=== PATIENT | female | born 1985 | race Two or more races ===

== ENCOUNTER 2016-05-20 04:33 | Emergency (ER) | payer OTHER, MEDICAID ==
[~2016-05-20] VITALS: Ht 167.6 cm; Wt 150.0 kg
[~2016-05-20 04:33] MED LIST: ALBU8.5H3; CYCL-319; DULO60CA6; FLUT16SP24; HYD25; NORE0.356; PANT40TA4; SUMA100T9; TOPI100T42; [UNRECOGNIZED DRUG - CODE]; [UNRECOGNIZED DRUG - CODE]
[2016-05-20 04:36] VITALS: Ht 167.6 cm; Wt 150.0 kg
[2016-05-20] MEDS ORDERED: KETOROLAC 30 MG INJ IM STA (05:05)
--- NOTE | 2016-05-20 05:14 | ERD ---
ER Documentation Chief Complaint Date/Time DATE: 05/20/16 TIME: 05:13 Chief Complaint back pain x 2 days HPI 30-year-old female morbidly obese with a history of hypertension, hyperlipidemia , asthma comes to the emergency room with diffuse back pain, and body pains as well as sore throat, over the last 3 days. She denies fever, chills, nausea, vomiting or hematuria. She denies chest pain, shortness of breath. ROS All systems reviewed and are negative except as per history of present illness. Medications Home Meds Active Scripts Hydrocodone/Acetaminophen ([place] 5-325 Tablet) 1 Each Tablet, 1 TAB PO Q6H Y for PAIN, #7 TAB Prov:MARIANNE RUSH PA-C 05/20/16 Naproxen* (Naprosyn*) 500 Mg Tablet, 500 MG PO BID Y for PAIN AND/OR INFLAMMATION, #30 TAB Prov:MARIANNE RUSH PA-C 05/20/16 Reported Medications Topiramate* (Topamax*) 100 Mg Tablet, 50 10/03/13 Pantoprazole (Protonix) 40 Mg Tabec, DAILY 10/03/13 Norethindrone (Yamileth-Be) 0.35 Mg Tablet, DAILY 10/03/13 Sumatriptan Succinate* (Imitrex*) 100 Mg Tablet, PRN 10/03/13 Hydrochlorothiazide* (Hydrochlorothiazide*) 25 Mg Tab, DAILY 10/03/13 Fluticasone Propionate (Flonase (16 gm)) 1 [place], DAILY 10/03/13 Duloxetine Hcl* (Cymbalta*) 60 Mg Capsule.dr, DAIlY 10/03/13 Cyclobenzaprine Hcl* (Cyclobenzaprine Hcl*) 10 Mg Tablet, Q6 10/03/13 Uucdkxgo-Kkwpevmsv-Ebbojlnbfl* (Cortisporin* Ophth) 3.5 Gm Oint 10/03/13 Atenolol* (Tenormin*) 100 Mg Tablet, DAILY 10/03/13 Albuterol Sulfate* (Proair HFA*) 8.5 Gm Hfa.aer.ad 11/16/12 Allergies Allergies: Coded Allergies: No Known Allergy (Unverified , 10/03/13) PMhx/Soc History of Surgery: No Anesthesia Reaction: No Hx Neurological Disorder: No Hx Respiratory Disorders: Yes (ASTHMA) Hx Cardiac Disorders: Yes (HTN) Hx Psychiatric Problems: Yes (DEPRESSION(?)) Hx Miscellaneous Medical Probl: Yes (DEVELOPMENTAL DELAYS) Hx Alcohol Use: Yes (OCCASIONALLY) Hx Substance Use: Yes (MARIJUANNA EDIBLE "CANDIES".) Hx Tobacco Use: Yes Smoking Status: Current every day smoker Physical Exam Vitals Vital Signs Date Time Temp Pulse Resp B/P Pulse Ox O2 Delivery O2 Flow Rate FiO2 05/20/16 04:36 97.6 101 20 164/80 100 Physical Exam General: Well-developed, well-nourished. The patient appears in no acute distress. HEENT: Head is normocephalic, atraumatic. No scleral icterus. Neck: Supple. Nontender. Lungs: Clear to auscultation. Normal air movement. Heart: Regular rate and rhythm. S1 and S2 are normal. No murmurs, gallops, or rubs. Abdomen: Soft, nontender, nondistended. Bowel sounds are normoactive. Extremities: No clubbing or cyanosis. Normal pulses. Moving extremities x 4. No weakness. Neurologic: Alert and oriented 3. No focal deficits. Skin: Normal turgor. No rash or lesions. Results 24 hrs Laboratory Tests Test 05/20/16 05:27 Bedside Urine Blood 2+ Bedside Urine Glucose (UA) Negative Bedside Urine Ketones (LAB) Negative Bedside Urine Leukocyte Esterase (L Negative Bedside Urine Nitrite (LAB) Negative Bedside Urine Protein (LAB) Negative Bedside Urine pH (LAB) 5.5 Current Medications Medications (Trade) Dose Ordered Sig/Amaya Route PRN Reason Start Time Stop Time Status Last Admin Dose Admin Ketorolac Tromethamine (Toradol) 30 mg ONCE STAT IM 05/20/16 05:05 05/20/16 05:06 DC 05/20/16 05:31 Procedures/MDM ED course: Patient was given Toradol 30 mg IM. She is also given a GI cocktail which she subsequently complained of epigastric abdominal pain. MDM: 31-year-old female comes in with painful urination, and body pain for the past 3 days, headache. This patient's symptoms appear to be possibly from a viral syndrome versus my migraine headache. She presents with a frontal headache, that is throbbing, she was given Toradol in the emergency department, and will be observed. She does not show signs of an acute or surgical process, I doubt obstructive kidney stone, septic kidney stone, pyelonephritis, pneumonia , meningitis. Patient's blood pressure was elevated (>120/80) but appears stable without evidence of hypertension emergency or urgency. The patient was counseled about the risks of hypertension and urged to pursue outpatient monitoring and therapy within a week with their primary care physician. Departure Diagnosis: Primary Impression: Myalgia Condition: Good MARIANNE RUSH PA-C May 20, 2016 05:14
[2016-05-20 05:26] LABS: URINE BLOOD (Dip) POC 2+ (NEGATIVE)
[2016-05-20] MEDS ORDERED: NAPR-260 PO (05:41)
[2016-05-20] MEDS ORDERED: HYDR-906 PO (05:41)
[2016-05-20] MEDS ORDERED: LIDOCAINE/MYLANTA 40 ML BTL PO ONE (06:00)
[2016-05-20 06:07] VITALS: BP 159/77; PULSE 89; RESP 22; TEMP 98.9
== END 2016-05-20 06:08 | disposition home or self-care (01) ==
LOC: FTE 04:33
DX: M79.1 Myalgia (principal); I10 Essential (primary) hypertension; J45.909 Unspecified asthma, uncomplicated; F17.210 Nicotine dependence, cigarettes, uncomplicated; E66.01 Morbid (severe) obesity due to excess calories; Z68.43 Body mass index [BMI] 50.0-59.9, adult
CPT/HCPCS: 81003; J1885; 96372

== ENCOUNTER 2016-09-09 20:22 | Emergency (ER) | payer OTHER, MEDICAID ==
[~2016-09-09] VITALS: Ht 167.6 cm; Wt 181.8 kg
[~2016-09-09 20:22] MED LIST changes: +HYDR-906 PO; +NAPR-260 PO
[2016-09-09 20:25] VITALS: Ht 167.6 cm; Wt 181.8 kg
[2016-09-09] MEDS ORDERED: ONDANSETRON (ODT) 4 MG TAB ODT STA (21:31)
[2016-09-09] MEDS ORDERED: ONDA4TAB14 PO (21:35)
[2016-09-09] MEDS ORDERED: HYDR-902 PO (21:35)
--- NOTE | 2016-09-09 21:40 | ERD ---
ER Documentation Chief Complaint Date/Time DATE: 09/09/16 TIME: 21:38 Chief Complaint states glf yesterday, c/o generalize body pain HPI 31-year-old female who presents with generalized body pain and hyperesthesia after a ground-level fall yesterday. The patient states that she tripped and fell to the ground she did not hit her head or lose consciousness. Since then she has had total body pain. She states pain everywhere in her body. She denies any focal trauma or injury. She denies any neck pain. Pain is not improved with Motrin and is moderate to severe. ROS All systems reviewed and are negative except as per history of present illness. Medications Home Meds Active Scripts Ondansetron (Ondansetron Odt) 4 Mg Tab.rapdis, 4 MG PO Q6H Y for NAUSEA AND/OR VOMITING, #10 TAB Prov:JUANA BROWN MD 09/09/16 Hydrocodone/Acetaminophen ([place] 10-325 Tablet) 1 Each Tablet, 1 TAB PO Q6H Y for PAIN, #7 TAB Prov:JUANA BROWN MD 09/09/16 Hydrocodone/Acetaminophen ([place] 5-325 Tablet) 1 Each Tablet, 1 TAB PO Q6H Y for PAIN, #7 TAB Prov:MARIANNE RUSH PA-C 05/20/16 Naproxen* (Naprosyn*) 500 Mg Tablet, 500 MG PO BID Y for PAIN AND/OR INFLAMMATION, #30 TAB Prov:MARIANNE RUSH PA-C 05/20/16 Reported Medications Topiramate* (Topamax*) 100 Mg Tablet, 50 10/03/13 Pantoprazole (Protonix) 40 Mg Tabec, DAILY 10/03/13 Norethindrone (Yamileth-Be) 0.35 Mg Tablet, DAILY 10/03/13 Sumatriptan Succinate* (Imitrex*) 100 Mg Tablet, PRN 10/03/13 Hydrochlorothiazide* (Hydrochlorothiazide*) 25 Mg Tab, DAILY 10/03/13 Fluticasone Propionate (Flonase (16 gm)) 1 Selt[place] Seltzer, DAILY 10/03/13 Duloxetine Hcl* (Cymbalta*) 60 Mg Capsule.dr, DAIlY 10/03/13 Cyclobenzaprine Hcl* (Cyclobenzaprine Hcl*) 10 Mg Tablet, Q6 10/03/13 Dpckzkhx-Owtqnxile-Nyrgxjlppf* (Cortisporin* Ophth) 3.5 Gm Oint 10/03/13 Atenolol* (Tenormin*) 100 Mg Tablet, DAILY 10/03/13 Albuterol Sulfate* (Proair HFA*) 8.5 Gm Hfa.aer.ad 11/16/12 Allergies Allergies: Coded Allergies: No Known Allergy (Unverified , 09/09/16) PMhx/Soc History of Surgery: No Anesthesia Reaction: No Hx Neurological Disorder: No Hx Respiratory Disorders: Yes (ASTHMA) Hx Cardiac Disorders: Yes (HTN) Hx Psychiatric Problems: Yes (DEPRESSION) Hx Miscellaneous Medical Probl: Yes (DEVELOPMENTAL DELAY, arthritis) Hx Alcohol Use: Yes (OCCASIONALLY) Hx Substance Use: Yes (MARIJUANNA EDIBLE "CANDIES".) Hx Tobacco Use: No Smoking Status: Never smoker FmHx Family History: No diabetes Physical Exam Vitals Vital Signs Date Time Temp Pulse Resp B/P Pulse Ox O2 Delivery O2 Flow Rate FiO2 09/09/16 20:25 98.9 85 20 136/79 97 Physical Exam Airway is intact Bilateral breath sounds Strong distal pulses No obvious deficits General: Morbidly obese female who is tearful to the slightest of touch the skin Head: Normocephalic, atraumatic Eyes: Pupils equally reactive, EOM intact ENT: Moist mucous membranes Neck: Supple, no lymphadenopathy, No midline tenderness, deformities, step-offs to the cervical spine, full active and passive range of motion without midline pain. Respiratory: Lungs clear bilaterally, no distress, no chest wall tenderness, no crepitus Cardiovascular: RRR, no murmurs, rubs, or gallops Abdominal: Soft, non-tender, non-distended, no peritoneal signs, pelvis is stable : Deferred MSK: No edema, no unilateral swelling, 5/5 strength, no midline tenderness deformities or step-offs to the thoracolumbar spine Neurologic: Alert and oriented, moving all extremities, normal speech, no focal weakness, no cerebellar signs Skin: No ecchymoses or bruising to the chest or abdomen, hyperesthesia Psych: Normal mood Results 24 hrs Current Medications Medications (Trade) Dose Ordered Sig/Amaya Route PRN Reason Start Time Stop Time Status Last Admin Dose Admin Acetaminophen/ Hydrocodone Bitart ([place] (10/325)) 1 tab ONCE ONCE PO 09/09/16 22:00 09/09/16 22:01 Ondansetron HCl (Zofran Odt) 4 mg ONCE STAT ODT 09/09/16 21:31 09/09/16 21:33 DC Procedures/MDM The patient presents with mechanical trip and fall. No evidence of syncope. The patient has significant hyperesthesia to her skin. She has no focal evidence of trauma to the head, neck, chest abdomen or pelvis or extremities. This is possibly related to chronic pain syndrome versus anxiety. The patient does not require laboratory testing or diagnostic imaging. The patient does not meet high-risk criteria and based on NEXUS cervical spine criteria there is no indication for cervical spine imaging at this time. The patient was offered Toradol but did not want an injection. She was given [place] will be given 7 tablets of [place] for discharge home. I discussed range of motion exercises and return precautions. We discussed follow up with the patient's primary care doctor within 24 to 48 hours as needed. We also discussed return to the emergency room for worsening symptoms or worsening condition. Outpatient referral: [None required] Discharge Medications: [place], Zofran We discussed the use of narcotics including avoidance of operating heavy machinery and driving as well as its addictive properties. Departure Diagnosis: Primary Impression: Myalgia Condition: Stable Patient Instructions: Myalgias Additional Instructions: Call your primary care doctor TOMORROW for an appointment during the next 1 WEEK.Tell the pocket secretary assembler that you were referred from this facility.See the doctor sooner or return here if your condition worsens before your appointment time. JUANA BROWN MD September 09, 2016 21:40
[2016-09-09] MEDS ORDERED: HYDROCODONE/APAP (10/325) TAB PO ONE (22:00)
[2016-09-09 22:16] VITALS: BP 129/78; PULSE 74; RESP 20; TEMP 98.9
== END 2016-09-09 22:18 | disposition home or self-care (01) ==
LOC: E/R 20:22
DX: M79.1 Myalgia (principal); I10 Essential (primary) hypertension; J45.909 Unspecified asthma, uncomplicated; R40.2142 Coma scale, eyes open, spontaneous, at arrival to emergency department; R40.2252 Coma scale, best verbal response, oriented, at arrival to emergency department; R40.2362 Coma scale, best motor response, obeys commands, at arrival to emergency department
CPT/HCPCS: 99284

== ENCOUNTER 2016-11-03 15:47 | Emergency (ER) | payer OTHER, MEDICAID ==
[~2016-11-03] VITALS: Ht 165.1 cm; Wt 205.0 kg
[~2016-11-03 15:47] MED LIST changes: +HYDR-902 PO; +ONDA4TAB14 PO
[2016-11-03 16:04] VITALS: Ht 165.1 cm; Wt 205.0 kg
[2016-11-03] MEDS ORDERED: SOD CHLORIDE 0.9% 1,000 ML IV STA (16:44)
[2016-11-03] MEDS ORDERED: ONDANSETRON 4 MG INJ IV STA (16:44)
[2016-11-03] MEDS ORDERED: HYDROmorphONE 1 MG/ML SYG IV STA ×2 (16:44→17:40)
--- NOTE | 2016-11-03 17:07 | ERD ---
ER Documentation Chief Complaint Date/Time DATE: 11/03/16 TIME: 17:02 Chief Complaint Complains of back and abdominal pain x 2 days HPI This is a 31-year-old female that presents to the ER with sharp upper abdominal pain that started 2 days ago. Patient is also complaining of fever and watery diarrhea. She denies any nausea or vomiting. Patient is also complaining of mid back pain that radiates to her thigh. Patient denies any trauma. She does have a past medical history of back pain secondary to an injury. Patient states that pain is worse whenever she breathes in her whenever she moves. She has not taken anything for the pain. Patient does admit to having marijuana for migraine headaches. ROS 12 point review of systems was done, all negative except per HPI. Medications Home Meds Active Scripts Ciprofloxacin Hcl* (Ciprofloxacin Hcl*) 500 Mg Tablet, 500 MG PO BID for 10 Days , TAB Prov:LORRAINE CHARLES 11/03/16 Famotidine* (Pepcid*) 20 Mg Tablet, 20 MG PO BID for 14 Days, TAB Prov:LORRAINE CHARLES 11/03/16 Ondansetron (Ondansetron Odt) 4 Mg Tab.rapdis, 4 MG PO Q6H Y for NAUSEA AND/OR VOMITING, #10 TAB Prov:JUANA BROWN MD 09/09/16 Hydrocodone/Acetaminophen ([place] 10-325 Tablet) 1 Each Tablet, 1 TAB PO Q6H Y for PAIN, #7 TAB Prov:JUANA BROWN MD 09/09/16 Hydrocodone/Acetaminophen ([place] 5-325 Tablet) 1 Each Tablet, 1 TAB PO Q6H Y for PAIN, #7 TAB Prov:MARIANNE RUSH PA-C 05/20/16 Naproxen* (Naprosyn*) 500 Mg Tablet, 500 MG PO BID Y for PAIN AND/OR INFLAMMATION, #30 TAB Prov:MARIANNE RUSH PA-C 05/20/16 Reported Medications Topiramate* (Topamax*) 100 Mg Tablet, 50 10/03/13 Pantoprazole (Protonix) 40 Mg Tabec, DAILY 10/03/13 Norethindrone (Yamileth-Be) 0.35 Mg Tablet, DAILY 10/03/13 Sumatriptan Succinate* (Imitrex*) 100 Mg Tablet, PRN 10/03/13 Hydrochlorothiazide* (Hydrochlorothiazide*) 25 Mg Tab, DAILY 10/03/13 Fluticasone Propionate (Flonase (16 gm)) 1 [place], DAILY 10/03/13 Duloxetine Hcl* (Cymbalta*) 60 Mg Capsule.dr, DAIlY 10/03/13 Cyclobenzaprine Hcl* (Cyclobenzaprine Hcl*) 10 Mg Tablet, Q6 10/03/13 Srwbcnhs-Mevzaoixt-Urwwednjuq* (Cortisporin* Ophth) 3.5 Gm Oint 10/03/13 Atenolol* (Tenormin*) 100 Mg Tablet, DAILY 10/03/13 Albuterol Sulfate* (Proair HFA*) 8.5 Gm Hfa.aer.ad 11/16/12 Allergies Allergies: Coded Allergies: No Known Allergy (Unverified , 11/03/16) PMhx/Soc History of Surgery: No Anesthesia Reaction: No Hx Neurological Disorder: No Hx Respiratory Disorders: Yes (ASTHMA) Hx Cardiac Disorders: Yes (HTN) Hx Psychiatric Problems: Yes (DEPRESSION) Hx Miscellaneous Medical Probl: Yes (DEVELOPMENTAL DELAY, arthritis) Hx Alcohol Use: Yes (OCCASIONALLY) Hx Substance Use: Yes (MARIJUANNA EDIBLE "CANDIES".) Hx Tobacco Use: No Smoking Status: Never smoker Physical Exam Vitals Vital Signs Date Time Temp Pulse Resp B/P Pulse Ox O2 Delivery O2 Flow Rate FiO2 11/03/16 16:04 97.9 82 20 143/80 97 Physical Exam GENERAL: super morbidly obese female HEENT: Atraumatic. Conjunctivae are pink. Pupils equal, round, and reactive to light. Extraocular muscles are grossly intact. Bilateral tympanic membranes are clear with no evidence of erythema, effusion or dulling of the light reflex. The oropharynx is clear with no erythema or exudates. CHEST: Clear to auscultation bilaterally. There are no rales, wheezes or rhonchi. HEART: Regular rate and rhythm. No murmurs, clicks, rubs or gallops. ABDOMEN:soft and non distended, RUQ and RLQ pain to palpation. Good bowel sounds. No rebound or guarding. No gross peritonitis. No gross organomegaly or masses. No Irby sign or McBurney point tenderness. BACK: No midline or flank tenderness. NEURO: Alert and oriented. SKIN: The skin is warm and dry. Result Diagram: 11/03/16 1700 11/03/16 1700 Results 24 hrs Laboratory Tests Test 11/03/16 17:00 White Blood Count 14.410^3/ul Red Blood Count 4.5410^6/ul Hemoglobin 11.2g/dl Hematocrit 37.0% Mean Corpuscular Volume 81.5fl Mean Corpuscular Hemoglobin 24.7pg Mean Corpuscular Hemoglobin Concent 30.3g/dl Red Cell Distribution Width 19.6% Platelet Count 39073^3/UL Mean Platelet Volume 10.5fl Neutrophils % 69.7% Lymphocytes % 21.9% Monocytes % 6.3% Eosinophils % 1.2% Basophils % 0.4% Nucleated Red Blood Cells % 0.0/100WBC Neutrophils # 10.010^3/ul Lymphocytes # 3.110^3/ul Monocytes # 0.910^3/ul Eosinophils # 0.210^3/ul Basophils # 0.110^3/ul Nucleated Red Blood Cells # 0.010^3/ul Urine Color YELLOW Urine Clarity CLOUDY Urine pH 6.0 Urine Specific Rud[place] 1.018 Urine Ketones NEGATIVEmg/dL Urine Nitrite POSITIVEmg/dL Urine Bilirubin NEGATIVEmg/dL Urine Urobilinogen NEGATIVEmg/dL Urine Leukocyte Esterase 3+Eduardo/ul Urine Microscopic RBC 97/HPF Urine Microscopic WBC 119/HPF Urine Squamous Epithelial Cells MODERATE/HPF Urine Bacteria FEW/HPF Urine Hemoglobin 2+mg/dL Urine Glucose NEGATIVEmg/dL Urine Total Protein 2+mg/dl Sodium Level 139mmol/L Potassium Level 4.1mmol/L Chloride Level 105mmol/L Carbon Dioxide Level 25mmol/L Anion Gap 13 Blood Urea Nitrogen 14mg/dl Creatinine 0.89mg/dl Glucose Level 91mg/dl Calcium Level 8.6mg/dl Total Bilirubin 0.2mg/dl Direct Bilirubin 0.00mg/dl Indirect Bilirubin 0.2mg/dl Aspartate Amino Transf (AST/SGOT) 31IU/L Alanine Aminotransferase (ALT/SGPT) 37IU/L Alkaline Phosphatase 83IU/L Total Protein 8.4g/dl Albumin 4.4g/dl Globulin 4.00g/dl Albumin/Globulin Ratio 1.10 Lipase 35U/L Current Medications Medications (Trade) Dose Ordered Sig/Amaya Route PRN Reason Start Time Stop Time Status Last Admin Dose Admin Sodium Chloride (NS) 1,000 ml @ 1,000 mls/hr Q1H STAT IV 11/03/16 16:44 11/03/16 17:43 DC 11/03/16 17:01 Hydromorphone HCl (Dilaudid) 1 mg ONCE STAT IV 11/03/16 16:44 11/03/16 16:49 DC 11/03/16 17:01 Ondansetron HCl (Zofran Inj) 4 mg ONCE STAT IV 11/03/16 16:44 11/03/16 16:49 DC 11/03/16 17:01 Hydromorphone HCl (Dilaudid) 1 mg ONCE STAT IV 11/03/16 17:40 11/03/16 17:41 DC 11/03/16 17:44 Miscellaneous Medication 40 ml 40 ml ONCE ONCE PO 11/03/16 18:00 11/03/16 18:01 DC 11/03/16 17:58 Ceftriaxone Sodium (Rocephin) 50 ml @ 100 mls/hr ONCE ONCE IVPB 11/03/16 18:30 11/03/16 18:59 11/03/16 18:34 Procedures/MDM Differential Diagnosis: GERD, gastritis, peptic ulcer disease, pancreatitis, cholecystitis, choledocholithiasis, biliary colic, cholangitis, Cgia-Bzoc-Jiruke , ACS/LA, Pnuemonia. This is a 31-year-old female presents to the ER with upper abdominal pain back pain. Patient was found to have a urinary tract infection. She will be treated for pyelonephritis. Patient was given Rocephin in the ER without any complications. She was also given 2 mg of Dilaudid and a GI cocktail which controlled her pain. Patient stated that the GI cocktail helped more than the Dilaudid this is likely because her pain may be related to acid reflux. Suspicion for gallbladder disease is low there was no evidence of gallstones on ultrasound and there was no transaminitis or elevation in her lipase. Patient does not complain of chest pain or shortness of breath, EKG was done however since she was complaining of upper abdominal pain [address] elevation or T-wave inversion this EKG was read by Dr. Harris. Suspicion for acute cardiac etiology or intrathoracic emergency is low. Patient will be sent home with Cipro and with famotidine. Patient is to follow-up with her primary care doctor within 1-2 days return to ER sooner if symptoms worsen. My medical decision making was shared with the patient she understands and agrees with plan. Departure Diagnosis: Primary Impression: Super-super obese LORRAINE CHARLES Nov 03, 2016 17:06
[2016-11-03 17:20] LABS: ADD SCAN DIFF NO
[2016-11-03 17:21] LABS: BASOPHIL # 0.1 10^3/ul (0.0-0.1); BASOPHILS % 0.4 % (0.0-2.0); EOSINOPHILS # 0.2 10^3/ul (0.0-0.5); EOSINOPHILS % 1.2 % (0.0-7.0); HEMOGLOBIN 11.2 g/dl (12.0-16.0); LYMPHOCYTES # 3.1 10^3/ul (0.8-2.9); LYMPHOCYTES % 21.9 % (15.0-51.0); MEAN CORPUSCULAR HEMOGLOBIN 24.7 pg (29.0-33.0); MEAN CORPUSCULAR HGB CONC 30.3 g/dl (32.0-37.0); MEAN CORPUSCULAR VOLUME 81.5 fl (82.0-101.0); MEAN PLATELET VOLUME 10.5 fl (7.4-10.4); MONOCYTE # 0.9 10^3/ul (0.3-0.9); MONOCYTES % 6.3 % (0.0-11.0); NEUTROPHILS % 69.7 % (39.0-77.0); PLATELET COUNT 338 10^3/UL (140-415); RED BLOOD COUNT 4.54 10^6/ul (4.20-5.40); RED CELL DISTRIBUTION WIDTH 19.6 % (11.5-14.5); WHITE BLOOD COUNT 14.4 10^3/ul (4.8-10.8)
[2016-11-03 17:34] LABS: ADD UMIC YES; UR ASCORBIC ACID NEGATIVE (NEGATIVE); UR BACTERIA FEW /HPF (NONE SEEN); UR BILIRUBIN (Dip) NEGATIVE (NEGATIVE); UR BLOOD (Dip) 2+ mg/dL (NEGATIVE); UR CLARITY CLOUDY (CLEAR); UR COLOR YELLOW (YELLOW); UR GLUCOSE (Dip) NEGATIVE (NEGATIVE); UR KETONES (Dip) NEGATIVE (NEGATIVE); UR LEUKOCYTE ESTERASE (Dip) 3+ Leu/ul (NEGATIVE); UR NITRITE (Dip) POSITIVE (NEGATIVE); UR RBC 97 /HPF (0-5); UR SPECIFIC GRAVITY (Dip) 1.018 (1.003-1.030); UR SQUAMOUS EPITHELIAL CELL MODERATE /HPF (FEW); UR TOTAL PROTEIN (Dip) 2+ mg/dl (NEGATIVE); UR UROBILINOGEN (Dip) NEGATIVE (NEGATIVE)
[2016-11-03 17:41] LABS: ALBUMIN 4.4 g/dl (3.3-4.9); ALBUMIN/GLOBULIN RATIO 1.1; BILIRUBIN,INDIRECT 0.2 mg/dl (0-1.1); BILIRUBIN,TOTAL 0.2 mg/dl (0.2-1.3); CALCIUM 8.6 mg/dl (8.4-10.2); CREATININE 0.89 mg/dl (0.44-1.00); POTASSIUM 4.1 mmol/L (3.5-5.1); TOTAL PROTEIN 8.4 g/dl (6.1-8.1)
--- NOTE | 2016-11-03 17:56 | RADRPT ---
PROCEDURE: Right Upper Quadrant Ultrasound. CLINICAL INDICATION: Abdominal Pain TECHNIQUE: Multiple real-time images were acquired of the patient's right upper quadrant abdomen a nd retroperitoneum utilizing a high resolution transducer. COMPARISON: None FINDINGS: The liver measures 20.7 cm, and demonstrates diffusely increased echogenicity. The main portal vein is patent with proper directional flow. There is no intrahepatic biliary ductal dilatation. The extr ahepatic common bile duct measures 5 mm. The gallbladder is without stones, wall thickening, or pericholecystic fluid. Sonographic Irby's s ign is absent. The pancreas is not visualized. The right kidney measures 13.2 x 6.3 x 6.8 cm and demonstrates normal echotexture. There is no right renal calculus or hydronephrosis. The visualized abdominal aorta and IVC are grossly unremarkable. IMPRESSION: Marked hepatomegaly with severe fatty infiltration. No cholelithiasis or acute cholecystitis. Normal CBD. RPTAT: EE Physician Florencia Date Time Electronically viewed and signed by Physician Florencia on 11/03/2016 17:56 /
[2016-11-03] MEDS ORDERED: LIDOCAINE/MYLANTA 40 ML BTL PO ONE (18:00)
[2016-11-03] MEDS ORDERED: CEFTRIAXONE 2 GM/50 ML (PMX) 50 ML IVPB ONE (18:30)
[2016-11-03] MEDS ORDERED: FAMO-96 PO (18:37)
[2016-11-03] MEDS ORDERED: CIPR500T4 PO (18:38)
== END 2016-11-03 19:00 | disposition home or self-care (01) ==
LOC: FTE 15:47
DX: E66.01 Morbid (severe) obesity due to excess calories (principal); I10 Essential (primary) hypertension; J45.909 Unspecified asthma, uncomplicated; F88 Other disorders of psychological development; Z68.45 Body mass index [BMI] 70 or greater, adult
CPT/HCPCS: 36415; 76705; 80053; 81001; 83690; 85025; 93005; 96374; 96375; 96376; 99285; J0696; J1170; J2405; J7030

== ENCOUNTER 2016-11-11 05:58 | Emergency (ER) | payer OTHER, MEDICAID ==
[~2016-11-11] VITALS: Ht 170.2 cm; Wt 203.0 kg
[~2016-11-11 05:58] MED LIST changes: +CIPR500T4 PO; +FAMO-96 PO
[2016-11-11 06:05] VITALS: Ht 170.2 cm; Wt 203.0 kg
[2016-11-11] MEDS ORDERED: KETOROLAC 30 MG INJ IV STA (06:59)
[2016-11-11] MEDS ORDERED: LIDOCAINE/MYLANTA 40 ML BTL PO ONE (07:00)
--- NOTE | 2016-11-11 07:10 | ERD ---
ER Documentation Chief Complaint Date/Time DATE: 11/11/16 TIME: 07:07 Chief Complaint abdominal pain x 1 week, also c/o difficulty urinating HPI This 31-year-old female who presents the emergency department today complaining of abdominal pain and back pain and difficulty urinating. Patient states the abdominal pain she had before went away for a while and then started today. States that she did follow-up with her doctor on her last visit. Denies any vomiting, fevers or chills. Denies being constipated. ROS All systems reviewed and are negative except as per history of present illness. Medications Home Meds Active Scripts Docusate Sodium* (Colace*) 100 Mg Capsule, 100 MG PO TID, #30 CAP Prov:CORNELL RIOS PA-C 11/11/16 Polyethylene Glycol* (Miralax*) 17 Gm Powd.pack, 17 GM PO DAILY, #10 Prov:CORNELL RIOS PA-C 11/11/16 Ciprofloxacin Hcl* (Ciprofloxacin Hcl*) 500 Mg Tablet, 500 MG PO BID for 10 Days , TAB Prov:LORRAINE CHARLES 11/03/16 Famotidine* (Pepcid*) 20 Mg Tablet, 20 MG PO BID for 14 Days, TAB Prov:LORRAINE CHARLES 11/03/16 Ondansetron (Ondansetron Odt) 4 Mg Tab.rapdis, 4 MG PO Q6H Y for NAUSEA AND/OR VOMITING, #10 TAB Prov:JUANA BROWN MD 09/09/16 Hydrocodone/Acetaminophen ([place] 10-325 Tablet) 1 Each Tablet, 1 TAB PO Q6H Y for PAIN, #7 TAB Prov:JUANA BROWN MD 09/09/16 Hydrocodone/Acetaminophen ([place] 5-325 Tablet) 1 Each Tablet, 1 TAB PO Q6H Y for PAIN, #7 TAB Prov:MARIANNE RUSH PA-C 05/20/16 Naproxen* (Naprosyn*) 500 Mg Tablet, 500 MG PO BID Y for PAIN AND/OR INFLAMMATION, #30 TAB Prov:MARIANNE RUSH PA-C 05/20/16 Reported Medications Topiramate* (Topamax*) 100 Mg Tablet, 50 10/03/13 Pantoprazole (Protonix) 40 Mg Tabec, DAILY 10/03/13 Norethindrone (Yamileth-Be) 0.35 Mg Tablet, DAILY 10/03/13 Sumatriptan Succinate* (Imitrex*) 100 Mg Tablet, PRN 10/03/13 Hydrochlorothiazide* (Hydrochlorothiazide*) 25 Mg Tab, DAILY 10/03/13 Fluticasone Propionate (Flonase (16 gm)) 1 [place], DAILY 10/03/13 Duloxetine Hcl* (Cymbalta*) 60 Mg Capsule.dr, DAIlY 10/03/13 Cyclobenzaprine Hcl* (Cyclobenzaprine Hcl*) 10 Mg Tablet, Q6 10/03/13 Ztuomuyf-Fzzlgjesz-Tvctelqqew* (Cortisporin* Ophth) 3.5 Gm Oint 10/03/13 Atenolol* (Tenormin*) 100 Mg Tablet, DAILY 10/03/13 Albuterol Sulfate* (Proair HFA*) 8.5 Gm Hfa.aer.ad 11/16/12 Allergies Allergies: Coded Allergies: No Known Allergy (Unverified , 11/11/16) PMhx/Soc History of Surgery: No Anesthesia Reaction: No Hx Neurological Disorder: No Hx Respiratory Disorders: Yes (ASTHMA) Hx Cardiac Disorders: Yes (HTN) Hx Psychiatric Problems: Yes (DEPRESSION) Hx Miscellaneous Medical Probl: Yes (DEVELOPMENTAL DELAY, arthritis) Hx Alcohol Use: Yes (OCCASIONALLY) Hx Substance Use: Yes (MARIJUANNA EDIBLE "CANDIES".) Hx Tobacco Use: No Smoking Status: Never smoker Physical Exam Vitals Vital Signs Date Time Temp Pulse Resp B/P Pulse Ox O2 Delivery O2 Flow Rate FiO2 11/11/16 06:05 98.6 75 20 142/92 98 Physical Exam Const: Morbidly obese, no acute distress Head: Atraumatic Eyes: Normal Conjunctiva ENT: Normal External Ears, Nose and Mouth. Neck: Full range of motion..~ No meningismus. Resp: Clear to auscultation bilaterally Cardio: Regular rate and rhythm, no murmurs Abd: Soft, left upper quadrant tenderness non distended. Normal bowel sounds. No lower abdominal pain Skin: No petechiae or rashes Back: No midline tenderness. Left-sided flank pain. Ext: No cyanosis, or edema Neur: Awake and alert Psych: Normal Mood and Affect Result Diagram: 11/11/1615 11/11/16 0715 Results 24 hrs Laboratory Tests Test 11/11/16 07:15 11/11/16 08:40 White Blood Count 15.610^3/ul Red Blood Count 4.6210^6/ul Hemoglobin 11.4g/dl Hematocrit 37.5% Mean Corpuscular Volume 81.2fl Mean Corpuscular Hemoglobin 24.7pg Mean Corpuscular Hemoglobin Concent 30.4g/dl Red Cell Distribution Width 19.4% Platelet Count 61752^3/UL Mean Platelet Volume 9.8fl Neutrophils % 65.0% Lymphocytes % 26.2% Monocytes % 6.9% Eosinophils % 1.2% Basophils % 0.3% Neutrophils # 10.210^3/ul Lymphocytes # 4.110^3/ul Monocytes # 1.110^3/ul Eosinophils # 0.210^3/ul Basophils # 0.110^3/ul Nucleated Red Blood Cells # 0.010^3/ul Sodium Level 146mmol/L Potassium Level 3.8mmol/L Chloride Level 103mmol/L Carbon Dioxide Level 27mmol/L Anion Gap 20 Blood Urea Nitrogen 14mg/dl Creatinine 1.08mg/dl Glucose Level 95mg/dl Calcium Level 8.9mg/dl Total Bilirubin 0.0mg/dl Direct Bilirubin 0.00mg/dl Indirect Bilirubin 0.0mg/dl Aspartate Amino Transf (AST/SGOT) 24IU/L Alanine Aminotransferase (ALT/SGPT) 30IU/L Alkaline Phosphatase 79IU/L Total Protein 7.9g/dl Albumin 3.7g/dl Globulin 4.20g/dl Albumin/Globulin Ratio 0.88 Lipase 68U/L Urine Color YELLOW Urine Clarity CLEAR Urine pH 6.0 Urine Specific [place] 1.019 Urine Ketones NEGATIVEmg/dL Urine Nitrite NEGATIVEmg/dL Urine Bilirubin NEGATIVEmg/dL Urine Urobilinogen NEGATIVEmg/dL Urine Leukocyte Esterase NEGATIVELeu/ul Urine Hemoglobin NEGATIVEmg/dL Urine Glucose NEGATIVEmg/dL Urine Total Protein NEGATIVEmg/dl Current Medications Medications (Trade) Dose Ordered Sig/Amaya Route PRN Reason Start Time Stop Time Status Last Admin Dose Admin Miscellaneous Medication (Gi Cocktail (2)) 40 ml ONCE ONCE PO 11/11/16 07:00 11/11/16 07:04 DC 11/11/16 07:25 Ketorolac Tromethamine 30 mg 30 mg ONCE STAT IV 11/11/16 06:59 11/11/16 07:04 DC 11/11/16 08:43 Sodium Chloride (NS) 1,000 ml @ 1,000 mls/hr Q1H ONCE IV 11/11/16 07:30 11/11/16 08:29 DC 11/11/16 07:25 Famotidine (Pepcid Iv) 20 mg ONCE STAT IV 11/11/16 07:14 11/11/16 07:15 DC 11/11/16 07:25 Sumatriptan Succinate (Imitrex) 50 mg ONCE ONCE PO 11/11/16 10:30 11/11/16 10:31 DC Procedures/MDM This is a 31-year-old morbidly obese female who presents the emergency department today complaining of abdominal pain and difficulty urinating. Upon review of patient's medical record she was seen here on November 03, 2016. Patient was complaining of abdominal and back pain at that time for the 2 days. Patient had laboratory work done and was diagnosed with a urinary tract infection and treated here in the emergency department with Rocephin as well as sent home on Cipro. There was no culture done at that time. Patient was also sent home on famotidine after being treated here in the emergency department with Dilaudid and a GI cocktail. Today on physical exam patient has left upper abdominal pain. I did repeat patient's laboratory work and UA Laboratory workup shows an elevated white blood cell count of 15.6. This is mildly increased from her previous visit on the . Her hemoglobin is stable at 11.4. Her platelets are within normal limits. Her sodium is elevated at 146 otherwise electrolytes are within normal limits. Lipase is within normal limits. Liver enzymes are within normal limits. UA is completely negative for infection. I did send the urine for culture. Patient has no right upper quadrant pain and no lower abdominal pain and have low suspicion for acute surgical abdomen at this time. I have explained this to the patient. I explained her that given her chronic abdominal pain she will need to follow back up with Dr. Daigle for referral to GI specialist. Have given her a list of referrals. Patient's elevated white blood cell count may be reactive. Patient was given Toradol, IV fluids here in the emergency department. I did consider that the patient may also have constipation given that her pain seems to be located in different areas at different times. I will give her a prescription for MiraLAX and Colace. She was instructed to finish her course of Cipro. I have explained all results to the patient. All questions were answered. Patient had indicated that she is illiterate and does not read or write. I have placed a*on the Cipro medication bottle as well as the Pepcid and instructed her to make sure that she takes these medications. She was instructed to take all her other medications as prescribed. We will patient was here she was complaining of a headache. Patient was given a dose of Imitrex as that is usually what she takes at home. Do not feel that the patient requires a head CT scan at this time. She has no focal neurologic deficits. Low suspicion for acute hemorrhage, mass, abscess . Patient assented today with multiple complaints, specifically abdominal pain, back pain and headache At this time the patient is stable for discharge and outpatient management. Patient should follow up with their PCP in the next 1-2 days. They may return to the emergency department sooner for any persistent or worsening of symptoms. Patient understood and agreed with the plan. Discussed the patient with Dr. Mcbride and he is in agreement with the plan Departure Diagnosis: Primary Impression: Multiple complaints Condition: CORNELL Priest PA-C Nov 11, 2016 07:10
[2016-11-11] MEDS ORDERED: FAMOTIDINE 20 MG INJ IV STA (07:14)
[2016-11-11 07:28] LABS: ADD SCAN DIFF NO
[2016-11-11] MEDS ORDERED: SOD CHLORIDE 0.9% 1,000 ML IV ONE (07:30)
[2016-11-11 07:37] LABS: BASOPHIL # 0.1 10^3/ul (0.0-0.1); BASOPHILS % 0.3 % (0.0-2.0); EOSINOPHILS # 0.2 10^3/ul (0.0-0.5); EOSINOPHILS % 1.2 % (0.0-7.0); HEMATOCRIT 37.5 % (37.0-47.0); HEMOGLOBIN 11.4 g/dl (12.0-16.0); LYMPHOCYTES # 4.1 10^3/ul (0.8-2.9); LYMPHOCYTES % 26.2 % (15.0-51.0); MEAN CORPUSCULAR HEMOGLOBIN 24.7 pg (29.0-33.0); MEAN CORPUSCULAR HGB CONC 30.4 g/dl (32.0-37.0); MEAN CORPUSCULAR VOLUME 81.2 fl (82.0-101.0); MEAN PLATELET VOLUME 9.8 fl (7.4-10.4); MONOCYTE # 1.1 10^3/ul (0.3-0.9); MONOCYTES % 6.9 % (0.0-11.0); NEUTROPHIL # 10.2 10^3/ul (1.6-7.5); PLATELET COUNT 404 10^3/UL (140-415); RED BLOOD COUNT 4.62 10^6/ul (4.20-5.40); RED CELL DISTRIBUTION WIDTH 19.4 % (11.5-14.5); WHITE BLOOD COUNT 15.6 10^3/ul (4.8-10.8)
[2016-11-11 07:57] LABS: ALBUMIN 3.7 g/dl (3.3-4.9); ALBUMIN/GLOBULIN RATIO 0.88; CALCIUM 8.9 mg/dl (8.4-10.2); CREATININE 1.08 mg/dl (0.44-1.00); POTASSIUM 3.8 mmol/L (3.5-5.1); TOTAL PROTEIN 7.9 g/dl (6.1-8.1)
[2016-11-11 09:25] LABS: ADD UMIC NO; UR ASCORBIC ACID NEGATIVE (NEGATIVE); UR BILIRUBIN (Dip) NEGATIVE (NEGATIVE); UR BLOOD (Dip) NEGATIVE (NEGATIVE); UR CLARITY CLEAR (CLEAR); UR COLOR YELLOW (YELLOW); UR GLUCOSE (Dip) NEGATIVE (NEGATIVE); UR KETONES (Dip) NEGATIVE (NEGATIVE); UR LEUKOCYTE ESTERASE (Dip) NEGATIVE Leu/ul (NEGATIVE); UR NITRITE (Dip) NEGATIVE (NEGATIVE); UR SPECIFIC GRAVITY (Dip) 1.019 (1.003-1.030); UR TOTAL PROTEIN (Dip) NEGATIVE (NEGATIVE); UR UROBILINOGEN (Dip) NEGATIVE (NEGATIVE)
[2016-11-11] MEDS ORDERED: SUMATRIPTAN 50 MG TAB PO ONE (10:30)
[2016-11-11] MEDS ORDERED: POLY17PO6 PO (10:33)
[2016-11-11] MEDS ORDERED: DOCU-144 PO (10:33)
[2016-11-11 11:38] VITALS: BP 121/72; PULSE 61; RESP 16; TEMP 98.1
== END 2016-11-11 12:00 | disposition home or self-care (01) ==
LOC: FTE 05:58
DX: R10.12 Left upper quadrant pain (principal); M54.9 Dorsalgia, unspecified; R51 Headache; R39.198 Other difficulties with micturition; J45.909 Unspecified asthma, uncomplicated
CPT/HCPCS: 80053; 81003; 83690; 85025; 87086; 96361; 96374; 96375; 99284; J1885; J7030

== ENCOUNTER 2016-11-20 17:36 | Emergency (ER) | payer OTHER, MEDICAID ==
[~2016-11-20] VITALS: Ht 167.6 cm; Wt 201.0 kg
[~2016-11-20 17:36] MED LIST changes: +DOCU-144 PO; +POLY17PO6 PO
[2016-11-20 17:38] VITALS: Ht 167.6 cm; Wt 201.0 kg
[2016-11-20 19:21] LABS: ADD UMIC YES; UR ASCORBIC ACID NEGATIVE (NEGATIVE); UR BACTERIA FEW /HPF (NONE SEEN); UR BILIRUBIN (Dip) NEGATIVE (NEGATIVE); UR BLOOD (Dip) 2+ mg/dL (NEGATIVE); UR CLARITY SLIGHTLY CLOUDY (CLEAR); UR COLOR YELLOW (YELLOW); UR GLUCOSE (Dip) NEGATIVE (NEGATIVE); UR KETONES (Dip) NEGATIVE (NEGATIVE); UR LEUKOCYTE ESTERASE (Dip) 2+ Leu/ul (NEGATIVE); UR NITRITE (Dip) NEGATIVE (NEGATIVE); UR RBC 2 /HPF (0-5); UR SQUAMOUS EPITHELIAL CELL FEW /HPF (FEW); UR TOTAL PROTEIN (Dip) NEGATIVE (NEGATIVE); UR UROBILINOGEN (Dip) NEGATIVE (NEGATIVE)
[2016-11-20] MEDS ORDERED: NITR-58 PO (19:31)
[2016-11-20] MEDS ORDERED: PHEN-538 PO (19:32)
--- NOTE | 2016-11-20 20:27 | ERD ---
ER Documentation Chief Complaint Date/Time DATE: 11/20/16 TIME: 20:26 Chief Complaint PAINFUL URINATION AND UNABLE TO EMPTY BLADDER HPI This is a 31-year-old female with hypertension presenting to the emergency department who is morbidly obese complaining of painful urination, urgency and frequency since this morning. Patient states that she has mild pelvic pain locating in the suprapubic region, describing as constant pressure-like pain when she urinates. She denies any fever, flank pain, hematuria. She denies taking any medications for this. Last bowel movement was today. ROS All systems reviewed and are negative except as per history of present illness. Medications Home Meds Active Scripts Phenazopyridine Hcl* (Pyridium*) 200 Mg Tab, 200 MG PO TID Y for URINARY PAIN, # 20 TAB Prov:MALIHA LR PA-C 11/20/16 Nitrofurantoin Monohyd Macrocr* (Macrobid*) 100 Mg Capsr, 100 MG PO BID for 7 Days, CAP Prov:MALIHA LR PA-C 11/20/16 Docusate Sodium* (Colace*) 100 Mg Capsule, 100 MG PO TID, #30 CAP Prov:CORNELL RIOS PA-C 11/11/16 Polyethylene Glycol* (Miralax*) 17 Gm Powd.pack, 17 GM PO DAILY, #10 Prov:CORNELL RIOS PA-C 11/11/16 Ciprofloxacin Hcl* (Ciprofloxacin Hcl*) 500 Mg Tablet, 500 MG PO BID for 10 Days , TAB Prov:LORRAINE CHARLES 11/03/16 Famotidine* (Pepcid*) 20 Mg Tablet, 20 MG PO BID for 14 Days, TAB Prov:LORRAINE CHARLES 11/03/16 Ondansetron (Ondansetron Odt) 4 Mg Tab.rapdis, 4 MG PO Q6H Y for NAUSEA AND/OR VOMITING, #10 TAB Prov:JUANA BROWN MD 09/09/16 Hydrocodone/Acetaminophen ([place] 10-325 Tablet) 1 Each Tablet, 1 TAB PO Q6H Y for PAIN, #7 TAB Prov:JUANA BROWN MD 09/09/16 Hydrocodone/Acetaminophen ([place] 5-325 Tablet) 1 Each Tablet, 1 TAB PO Q6H Y for PAIN, #7 TAB Prov:MARIANNE RUSH PA-C 05/20/16 Naproxen* (Naprosyn*) 500 Mg Tablet, 500 MG PO BID Y for PAIN AND/OR INFLAMMATION, #30 TAB Prov:MARIANNE RUSH PA-C 05/20/16 Reported Medications Topiramate* (Topamax*) 100 Mg Tablet, 50 10/03/13 Pantoprazole (Protonix) 40 Mg Tabec, DAILY 10/03/13 Norethindrone (Yamileth-Be) 0.35 Mg Tablet, DAILY 10/03/13 Sumatriptan Succinate* (Imitrex*) 100 Mg Tablet, PRN 10/03/13 Hydrochlorothiazide* (Hydrochlorothiazide*) 25 Mg Tab, DAILY 10/03/13 Fluticasone Propionate (Flonase (16 gm)) 1 [place], DAILY 10/03/13 Duloxetine Hcl* (Cymbalta*) 60 Mg Capsule.dr, DAIlY 10/03/13 Cyclobenzaprine Hcl* (Cyclobenzaprine Hcl*) 10 Mg Tablet, Q6 10/03/13 Vgaurepx-Lvuyldstk-Cgytgiayel* (Cortisporin* Ophth) 3.5 Gm Oint 10/03/13 Atenolol* (Tenormin*) 100 Mg Tablet, DAILY 10/03/13 Albuterol Sulfate* (Proair HFA*) 8.5 Gm Hfa.aer.ad 11/16/12 Allergies Allergies: Coded Allergies: No Known Allergy (Unverified , 11/11/16) PMhx/Soc History of Surgery: No Anesthesia Reaction: No Hx Neurological Disorder: No Hx Respiratory Disorders: No Hx Cardiac Disorders: No Hx Psychiatric Problems: No Hx Miscellaneous Medical Probl: No Hx Alcohol Use: No Hx Substance Use: No Hx Tobacco Use: No Smoking Status: Never smoker Physical Exam Vitals Vital Signs Date Time Temp Pulse Resp B/P Pulse Ox O2 Delivery O2 Flow Rate FiO2 11/20/16 17:38 99.6 89 18 140/81 99 Physical Exam General: well-developed/well-nourished, in no apparent distress, non-toxic appearing HENT: NC/AT Eyes: Conjunctiva normal Neck: Supple Pulm: CTA bilaterally, normal breathing CV: Normal S1S2 GI: Soft, non-distended, normal bowel sounds, TTP on suprapubic region Back: No midline tenderness, no masses, No CVAT Ext: No clubbing, cyanosis, or edema Neuro: Alert and orientated Skin: intact, normal turgor Psych: Normal mood and mentation Results 24 hrs Laboratory Tests Test 11/20/16 19:00 Urine Color YELLOW Urine Clarity SLIGHTLY CLOUDY Urine pH 6.0 Urine Specific [place] 1.010 Urine Ketones NEGATIVEmg/dL Urine Nitrite NEGATIVEmg/dL Urine Bilirubin NEGATIVEmg/dL Urine Urobilinogen NEGATIVEmg/dL Urine Leukocyte Esterase 2+Eduardo/ul Urine Microscopic RBC 2/HPF Urine Microscopic WBC 4/HPF Urine Squamous Epithelial Cells FEW/HPF Urine Bacteria FEW/HPF Urine Hemoglobin 2+mg/dL Urine Glucose NEGATIVEmg/dL Urine Total Protein NEGATIVEmg/dl Procedures/MDM MDM: 31-year-old female presents to the ER with urinary tract infection. Low suspicion for pyelonephritis, nephrolithiasis, ovarian torsion due to physical examination and diagnostic testing. Urine out urinalysis is positive for urinary tract infection. Urine dipstick was negative. Disposition: Patient is in stable condition and hemodynamically stable for discharge. Prescriptions Macrobid and Pyridium have been given to take as directed. Strict precautions were given to return to the ER if not improving as expected or for any worsening signs and symptoms Departure Diagnosis: Primary Impression: UTI (urinary tract infection) Condition: Stable Patient Instructions: Understanding Urinary Tract Infections (UTIs) Additional Instructions: FOLLOW UP WITH YOUR PRIMARY CARE PHYSICIAN TOMORROW.Return to this facility if you are not improving as expected. Take all medicines as directed. Return to this facility if you are not improving as expected. MALIHA RL PA-C Nov 20, 2016 20:27
== END 2016-11-20 19:40 | disposition home or self-care (01) ==
LOC: FTE 17:36
DX: N39.0 Urinary tract infection, site not specified (principal)
CPT/HCPCS: 81001; 87086; 99283

== ENCOUNTER 2017-03-21 15:54 | Inpatient (IN) | payer OTHER, MEDICAID ==
[~2017-03-21] VITALS: Ht 167.6 cm; Wt 180.0 kg
[~2017-03-21 15:54] MED LIST changes: -HYD25; +HYDR25TA6; +NITR-58 PO; +PHEN-538 PO
--- NOTE | 2017-03-21 19:26 | ERD ---
ER Documentation Chief Complaint Chief Complaint CHEST BACK PAIN GIVEN 1 NITRO BY EMS HPI 32-year-old female morbidly obese patient comes in for chest pain upper back pain that started today. Patient describes the pain as sharp pain, 6/10 scale, not better or worse with anything. Patient was brought in by ambulance, was given nitroglycerin which helped but now the pain is starting to come back. Patient also is complaining of right knee pain for 1 month now, hit the right knee while walking. Patient denies any swelling on the right knee. Patient denies any redness. Patient denies any fever chills. She denies any wheezing or cough. ROS All systems reviewed and are negative except as per history of present illness. Medications Home Meds Active Scripts Phenazopyridine Hcl* (Pyridium*) 200 Mg Tab, 200 MG PO TID Y for URINARY PAIN, # 20 TAB Prov:MALIHA LR PA-C 11/20/16 Nitrofurantoin Monohyd Macrocr* (Macrobid*) 100 Mg Capsr, 100 MG PO BID for 7 Days, CAP Prov:MALIHA LR PA-C 11/20/16 Docusate Sodium* (Colace*) 100 Mg Capsule, 100 MG PO TID, #30 CAP Prov:CORNELL RIOS PA-C 11/11/16 Polyethylene Glycol* (Miralax*) 17 Gm Powd.pack, 17 GM PO DAILY, #10 Prov:CORNELL RIOS PA-C 11/11/16 Ciprofloxacin Hcl* (Ciprofloxacin Hcl*) 500 Mg Tablet, 500 MG PO BID for 10 Days , TAB Prov:LORRAINE CHARLES 11/03/16 Famotidine* (Pepcid*) 20 Mg Tablet, 20 MG PO BID for 14 Days, TAB Prov:LORRAINE CHARLES 11/03/16 Ondansetron (Ondansetron Odt) 4 Mg Tab.rapdis, 4 MG PO Q6H Y for NAUSEA AND/OR VOMITING, #10 TAB Prov:JUANA BROWN MD 09/09/16 Hydrocodone/Acetaminophen ([place] 10-325 Tablet) 1 Each Tablet, 1 TAB PO Q6H Y for PAIN, #7 TAB Prov:JUANA BROWN MD 09/09/16 Hydrocodone/Acetaminophen ([place] 5-325 Tablet) 1 Each Tablet, 1 TAB PO Q6H Y for PAIN, #7 TAB Prov:MARIANNE RUSH PA-C 05/20/16 Naproxen* (Naprosyn*) 500 Mg Tablet, 500 MG PO BID Y for PAIN AND/OR INFLAMMATION, #30 TAB Prov:MARIANNE RUSH PA-C 05/20/16 Reported Medications Topiramate* (Topamax*) 100 Mg Tablet, 50 10/03/13 Pantoprazole (Protonix) 40 Mg Tabec, DAILY 10/03/13 Norethindrone (Yamileth-Be) 0.35 Mg Tablet, DAILY 10/03/13 Sumatriptan Succinate* (Imitrex*) 100 Mg Tablet, PRN 10/03/13 Hydrochlorothiazide* (Hydrochlorothiazide*) 25 Mg Tab, DAILY 10/03/13 Fluticasone Propionate (Flonase (16 gm)) 1 [place], DAILY 10/03/13 Duloxetine Hcl* (Cymbalta*) 60 Mg Capsule.dr, DAIlY 10/03/13 Cyclobenzaprine Hcl* (Cyclobenzaprine Hcl*) 10 Mg Tablet, Q6 10/03/13 Cooqfncc-Oavvjkngm-Zxnesofamw* (Cortisporin* Ophth) 3.5 Gm Oint 10/03/13 Atenolol* (Tenormin*) 100 Mg Tablet, DAILY 10/03/13 Albuterol Sulfate* (Proair HFA*) 8.5 Gm Hfa.aer.ad 11/16/12 Allergies Allergies: Coded Allergies: No Known Allergy (Unverified , 11/11/16) PMhx/Soc Medical and Surgical Hx: pt denies Medical Hx, pt denies Surgical Hx History of Surgery: No Anesthesia Reaction: No Hx Neurological Disorder: No Hx Respiratory Disorders: No Hx Cardiac Disorders: Yes (htn) Hx Psychiatric Problems: No Hx Miscellaneous Medical Probl: No Hx Alcohol Use: No Hx Substance Use: No Hx Tobacco Use: No Smoking Status: Never smoker FmHx Family History: No coronary disease, No diabetes, No other Physical Exam Vitals Vital Signs Date Time Temp Pulse Resp B/P Pulse Ox O2 Delivery O2 Flow Rate FiO2 03/21/17 16:08 97.9 62 18 157/80 97 Physical Exam GENERAL: The patient is morbidly obese and appropriate for usual state of health, in no apparent distress. CHEST: Clear to auscultation bilaterally. There are no rales, wheezes or rhonchi. Tenderness on the chest wall HEART: Regular rate and rhythm. No murmurs, clicks, rubs or gallops. No S3 or S4. ABDOMEN: Soft, nontender and nondistended. Good bowel sounds. No rebound or guarding. No gross peritonitis. No gross organomegaly or masses. No Irby sign or McBurney point tenderness. BACK: No midline or flank tenderness. EXTREMITIES: Equal pulses bilaterally. There is no peripheral clubbing, cyanosis or edema. No focal swelling or erythema. Full range of motion. Grossly neurovascularly intact. NEURO: Alert and oriented. Cranial nerves 2-12 intact. Motor strength in all 4 extremities with 5/5 strength. Sensation grossly intact. Normal speech and gait. SKIN: There is no apparent rash or petechia. The skin is warm and dry. HEMATOLOGIC AND LYMPHATIC: There is no evidence of excessive bruising or lymphedema. No gross cervical, axillary, or inguinal lymphadenopathy. Result Diagram: 03/21/17192903/21/171929 Results 24 hrs Laboratory Tests Test 03/21/17 19:20 03/21/17 19:30 D-Dimer 679.31ng/ml D-Dimer Comment White Blood Count 14.110^3/ul Red Blood Count 4.6510^6/ul Hemoglobin 11.1g/dl Hematocrit 37.6% Mean Corpuscular Volume 80.9fl Mean Corpuscular Hemoglobin 23.9pg Mean Corpuscular Hemoglobin Concent 29.5g/dl Red Cell Distribution Width 18.0% Platelet Count 29903^3/UL Mean Platelet Volume 10.6fl Neutrophils % 63.4% Lymphocytes % 28.0% Monocytes % 6.2% Eosinophils % 1.6% Basophils % 0.4% Nucleated Red Blood Cells % 0.1/100WBC Neutrophils # 8.910^3/ul Lymphocytes # 3.910^3/ul Monocytes # 0.910^3/ul Eosinophils # 0.210^3/ul Basophils # 0.110^3/ul Nucleated Red Blood Cells # 0.010^3/ul Sodium Level 142mmol/L Potassium Level 4.2mmol/L Chloride Level 106mmol/L Carbon Dioxide Level 26mmol/L Anion Gap 14 Blood Urea Nitrogen 14mg/dl Creatinine 0.76mg/dl Glucose Level 87mg/dl Calcium Level 9.0mg/dl Total Bilirubin 0.2mg/dl Direct Bilirubin 0.00mg/dl Indirect Bilirubin 0.2mg/dl Aspartate Amino Transf (AST/SGOT) 31IU/L Alanine Aminotransferase (ALT/SGPT) 35IU/L Alkaline Phosphatase 75IU/L Troponin I < 0.012ng/ml Total Protein 7.6g/dl Albumin 3.7g/dl Globulin 3.90g/dl Albumin/Globulin Ratio 0.94 Current Medications Medications (Trade) Dose Ordered Sig/Amaya Route PRN Reason Start Time Stop Time Status Last Admin Dose Admin IV Flush 10 ml 10 ml STK-MED ONCE .ROUTE 03/21/17 20:16 03/21/17 20:17 DC Sodium Chloride 100 ml @ ud STK-MED ONCE .ROUTE 03/21/17 20:16 03/21/17 20:17 DC Iohexol (Omnipaque) 100 ml @ ud STK-MED ONCE .ROUTE 03/21/17 20:16 03/21/17 20:17 DC EKG was done, read by me and is normal sinus rhythm at a rate of 67, normal axis , there is no ST changes or changes in the EKG that indicates any cardiac emergencies at this time. Patient's EKG was also reviewed by Dr. King. Impression: no acute findings on EKG PROCEDURE: RIGHT knee x-ray CLINICAL INDICATION: r knee pain TECHNIQUE: AP, lateral, sunrise and oblique views of the knee were obtained. COMPARISON: None FINDINGS: There is normal mineralization. No acute fracture or dislocation is seen. There is no joint effusion. There are no significant degenerative changes. There is no significant soft tissue swelling. IMPRESSION: Normal x-ray of the right knee. .Brennan Rice MD, MD Date Time Electronically viewed and signed by .Brennan Rice MD, on 03/21/2017 20: 52 .A/ CC: NIRU CONDE NP PROCEDURE: Portable chest x-ray. CLINICAL INDICATION: Chest pain. TECHNIQUE: Portable AP view of the chest. COMPARISON: None. FINDINGS: No pulmonary edema or conolidation is identified. The cardiac silhouette is mildly enlarged. No pleural effusion is seen. There is no pneumothorax. IMPRESSION: 1. Mildly enlarged cardiac silhouette. It is unclear if this represents a true finding or magnification related to AP technique. RPTAT: HTAR .Douglas Contreras MD, MD Date Time Electronically viewed and signed by .Douglas Contreras MD, MD on 03/21/2017 22:36 .R/ CC: NIRU CONDE NP vertex Procedures/MDM Medical Decision Making: Patient d-dimer is elevated, patient is morbidly obese complaining of chest pain, high risk cardiac patient, at this time, patient will be admitted to the hospital for further evaluation and treatment plan, Dr. King will facilitate patient's admission to the hospital. Disclaimer: Inadvertent spelling and grammatical errors are likely due to EHR/ dictation software use and do not reflect on the overall quality of patient care. Also, please note that the electronic time recorded on this note does not necessarily reflect the actual time of the patient encounter. Departure Diagnosis: Primary Impression: Chest pain Chest pain type: unspecified Qualified Code: R07.9 - Chest pain, unspecified type Condition: Fair NIRU CONDE NP Mar 21, 2017 19:26
[2017-03-21 19:48] LABS: BASOPHIL # 0.1 10^3/ul (0.0-0.1); BASOPHILS % 0.4 % (0.0-2.0); EOSINOPHILS # 0.2 10^3/ul (0.0-0.5); EOSINOPHILS % 1.6 % (0.0-7.0); HEMATOCRIT 37.6 % (37.0-47.0); HEMOGLOBIN 11.1 g/dl (12.0-16.0); LYMPHOCYTES # 3.9 10^3/ul (0.8-2.9); MEAN CORPUSCULAR HEMOGLOBIN 23.9 pg (29.0-33.0); MEAN CORPUSCULAR HGB CONC 29.5 g/dl (32.0-37.0); MEAN CORPUSCULAR VOLUME 80.9 fl (82.0-101.0); MEAN PLATELET VOLUME 10.6 fl (7.4-10.4); MONOCYTE # 0.9 10^3/ul (0.3-0.9); MONOCYTES % 6.2 % (0.0-11.0); NEUTROPHIL # 8.9 10^3/ul (1.6-7.5); NEUTROPHILS % 63.4 % (39.0-77.0); NUCLEATED RED BLOOD CELLS% 0.1 /100WBC (0.0-0.0); PLATELET COUNT 331 10^3/UL (140-415); RED BLOOD COUNT 4.65 10^6/ul (4.20-5.40); WHITE BLOOD COUNT 14.1 10^3/ul (4.8-10.8)
[2017-03-21 20:08] LABS: ALANINE AMINOTRANSFERASE 35 IU/L (13-69); ALBUMIN 3.7 g/dl (3.3-4.9); ALBUMIN/GLOBULIN RATIO 0.94; ALKALINE PHOSPHATASE 75 IU/L (42-121); ANION GAP 14 (8-16); ASPARTATE AMINO TRANSFERASE 31 IU/L (15-46); BILIRUBIN,INDIRECT 0.2 mg/dl (0-1.1); BILIRUBIN,TOTAL 0.2 mg/dl (0.2-1.3); BLOOD UREA NITROGEN 14 mg/dl (7-20); CARBON DIOXIDE 26 mmol/L (21-31); CHLORIDE 106 mmol/L (97-110); CREATININE 0.76 mg/dl (0.44-1.00); GLUCOSE 87 mg/dl (70-220); POTASSIUM 4.2 mmol/L (3.5-5.1); SODIUM 142 mmol/L (135-144); TOTAL PROTEIN 7.6 g/dl (6.1-8.1)
[2017-03-21] MEDS ORDERED: SOD CHLORIDE 0.9% 100 ML ONE (20:16)
[2017-03-21] MEDS ORDERED: IOHEXOL 100 ML ONE (20:16)
[2017-03-21 20:27] LABS: TROPONIN-I < 0.012 ng/ml (0.00-0.12)
--- NOTE | 2017-03-21 20:52 | RADRPT ---
PROCEDURE: RIGHT knee x-ray CLINICAL INDICATION: r knee pain TECHNIQUE: AP, lateral, sunrise and oblique views of the knee were obtained. COMPARISON: None FINDINGS: There is normal mineralization. No acute fracture or dislocation is seen. There is no joint effusion. There are no significant degenerative changes. There is no significant soft tissue swelling. IMPRESSION: Normal x-ray of the right knee. .Brennan Rice MD, MD Date Time Electronically viewed and signed by .Brennan Rice MD, on 03/21/2017 20:52 .A/
[2017-03-21 22:19] LABS: D-DIMER 679.31 ng/ml (<460)
--- NOTE | 2017-03-21 22:37 | RADRPT ---
PROCEDURE: Portable chest x-ray. CLINICAL INDICATION: Chest pain. TECHNIQUE: Portable AP view of the chest. COMPARISON: None. FINDINGS: No pulmonary edema or conolidation is identified. The cardiac silhouette is mildly enlarged. No pl eural effusion is seen. There is no pneumothorax. IMPRESSION: 1. Mildly enlarged cardiac silhouette. It is unclear if this represents a true finding or magnifica tion related to AP technique. RPTAT: HTAR .Douglas Contreras MD, Date Time Electronically viewed and signed by .Douglas Contreras MD, on 03/21/2017 22:36 .R/
[2017-03-21] MEDS ORDERED: ACETAMINOPHEN 500 MG TAB PO STA (23:25)
--- NOTE | 2017-03-21 23:44 | EN ---
Date/Time of Note Date/Time of Note DATE: 03/21/17 TIME: 23:43 ER Progress Note Patient endorsed to me by nurse practitioner. Reviewed case. Examined patient. Patient will be admitted to Dr. Wilcox for further evaluation and management. ADRIANA STUBBS Mar 21, 2017 23:44
--- NOTE | 2017-03-22 00:23 | RADRPT ---
PROCEDURE: Ultrasound of the bilateral lower extremity venous system. CLINICAL INDICATION: Bilateral leg pain and swelling, deep venous thrombosis TECHNIQUE: Morrow scale with and without compression, color doppler, spectral doppler of the venous system of the bilateral lower extremities was performed. Venous augmentation maneuvers were utilized . COMPARISON: No prior studies are available for comparison. FINDINGS: Right: Common femoral vein: Patent. Femoral vein: Patent. Popliteal vein: Patent. Calf veins: Patent. No soft tissue abnormalities are identified. Left: Common femoral vein: Patent. Femoral vein: Patent. Popliteal vein: Patent. Calf veins: Patent. No soft tissue abnormalities are identified. IMPRESSION: No evidence of a deep vein thrombosis within the bilateral lower extremities. RPTAT: AADD .Damian Bai MD, MD Date Time Electronically viewed and signed by .Daiman Bai MD, MD on 03/22/2017 00:22 .B/
[2017-03-22] MEDS ORDERED: NACL 0.9% 3 ML SYG IV SCH (01:00)
[2017-03-22] MEDS ORDERED: ONDANSETRON 4 MG TAB PO PRN (01:00)
[2017-03-22] MEDS: morphine 2 MG INJ IV PRN ×2 (01:14→09:58)
[2017-03-22 04:01] VITALS: Ht 167.6 cm; Wt 180.0 kg
[2017-03-22 04:05] LABS: BASOPHILS % 0.3 % (0.0-2.0); EOSINOPHILS # 0.2 10^3/ul (0.0-0.5); EOSINOPHILS % 1.5 % (0.0-7.0); HEMATOCRIT 36.3 % (37.0-47.0); HEMOGLOBIN 10.7 g/dl (12.0-16.0); LYMPHOCYTES % 29.3 % (15.0-51.0); MEAN CORPUSCULAR HEMOGLOBIN 23.7 pg (29.0-33.0); MEAN CORPUSCULAR HGB CONC 29.5 g/dl (32.0-37.0); MEAN CORPUSCULAR VOLUME 80.3 fl (82.0-101.0); MEAN PLATELET VOLUME 9.9 fl (7.4-10.4); MONOCYTE # 0.7 10^3/ul (0.3-0.9); MONOCYTES % 5.3 % (0.0-11.0); NEUTROPHIL # 8.5 10^3/ul (1.6-7.5); NEUTROPHILS % 63.1 % (39.0-77.0); PLATELET COUNT 358 10^3/UL (140-415); RED BLOOD COUNT 4.52 10^6/ul (4.20-5.40); RED CELL DISTRIBUTION WIDTH 18.2 % (11.5-14.5); WHITE BLOOD COUNT 13.5 10^3/ul (4.8-10.8)
[2017-03-22] MEDS: ACETAMINOPHEN 325 MG TAB PO PRN ×2 (04:20→04:27)
[2017-03-22 04:30] LABS: CREATINE KINASE 67 IU/L (23-200)
[2017-03-22 04:33] LABS: ALBUMIN 3.4 g/dl (3.3-4.9); ALBUMIN/GLOBULIN RATIO 0.79; BILIRUBIN,INDIRECT 0.2 mg/dl (0-1.1); BILIRUBIN,TOTAL 0.2 mg/dl (0.2-1.3); CHOL/HDL RATIO 5.6 RATIO; CREATININE 0.79 mg/dl (0.44-1.00); MAGNESIUM 1.7 mg/dl (1.7-2.5); POTASSIUM 3.9 mmol/L (3.5-5.1); TOTAL PROTEIN 7.7 g/dl (6.1-8.1)
[2017-03-22] MEDS ORDERED: ENOXAPARIN 40 MG/0.4 ML SYG SC ONE (04:38)
[2017-03-22 04:43] LABS: CK-MB 1.16 ng/ml (0.0-2.4)
[2017-03-22 04:44] LABS: TROPONIN-I < 0.012 ng/ml (0.00-0.12)
[2017-03-22] MEDS ORDERED: ENOXAPARIN 80 MG/0.8 ML SYG SC SCH ×2 (05:00)
[2017-03-22 05:03] LABS: THYROID STIMULATING HORMONE 2.76 MIU/L (0.465-4.680)
[2017-03-22 06:17] VITALS: BP 134/64; PULSE 78; RESP 22
[2017-03-22 08:00] VITALS: PULSE 115
[2017-03-22 08:43] LABS: CREATINE KINASE 62 IU/L (23-200)
[2017-03-22 08:57] LABS: CK-MB 1.15 ng/ml (0.0-2.4); TROPONIN-I < 0.012 ng/ml (0.00-0.12)
--- NOTE | 2017-03-22 09:31 | HP ---
Date/Time of Note Date/Time of Note DATE: 03/22/17 TIME: 09:26 Assessment/Plan VTE Prophylaxis VTE Prophylaxis Intervention: SCD's Lines/Catheters IV C[facility]ter Type (from [facility]): [place] Assessment/Plan Chief Complaint/Hosp Course This is a 32-year-old female being admitted to the telemetry floor for #1 chest pain: ACS versus PE versus other etiology. At the current time will trend cardiac troponins 3. First set was negative. Will check echocardiogram. My hope was to obtain a CTA of the chest however secondary to patient's BMI she will not be able to fit in the scanner. Will order a VQ scan to further assess. D-dimer was elevated at approximately 600. Patient also reportedly has a history of blood clots in the family will check a protein C and S antiphospholipid and lupus anticoagulant and in the meantime we will start the patient on Lovenox therapeutic dose in the mean time. #2 hypertension: Continue patient on medications #3 family history blood clots: Patient states that his mom had a history of blood clots. At the current time will check a protein C&S and antiphospholipid and lupus anticoagulant prior to administration of Lovenox. #4 DVT GI prophylaxis: Lovenox, no GI prophylaxis indicated Further treatment strategy will be implemented as per the clinical course Problems: HPI/ROS Admit Date/Time Admit Date/Time Mar 21, 2017 at 23:12 Hx of Present Illness cc: cp This is a 32-year-old female morbidly obese patient comes in for chest pain upper back pain that started today. Patient describes the pain as sharp pain, 6 /10 scale, not better or worse with anything. Patient was brought in by ambulance, was given nitroglycerin which helped but now the pain is starting to come back. Patient also is complaining of right knee pain for 1 month now, hit the right knee while walking. Patient denies any swelling on the right knee. Patient denies any redness. Patient denies any fever chills. She denies any wheezing or cough. Allergies: NKDA Medications: See MATTHEW CASTRO Const: As per HPI Eyes : No pain discharge or redness or change in visual acuity ENT: No pain, sore throat, congestion, congestion, dysphagia or discharge Respiratory: As per HPI Cardiovascular: As per HPI GI : no change in appetite, abdominal pain, nausea, vomiting, diarrhea, constipation, or change in the color his stool Genitourinary: No dysuria, hematuria, flank pain , discharge or CVA tenderness Musculoskeletal: No joint pain, back pain, neck pain, restricted range of motion in neck or joints Skin: No rash, bruising or hives Neuro: No headache, dizziness, syncope, seizure, focal weakness Endocrine: No polyuria, polydipsia, temperature intolerance Psych: No hallucination, depression, anxiety or suicidal ideation PMH/Family/Social Past Medical History Hypertension, Past Surgical History Past Surgical Hx: no surgical history Family History Significant Family History: diabetes, other (Blood clots: Mom) Social History Alcohol Use: none Smoking Status: Never smoker Drug Use: marijuana Exam/Review of Systems Vital Signs Vitals Vital Signs Date Time Temp Pulse Resp B/P Pulse Ox O2 Delivery O2 Flow Rate FiO2 03/22/17 08:00 115 03/22/17 06:17 98.0 22 134/64 97 Room Air Exam Exam General: Patient is a 64-year-old lying in bed in mild distress from pain especially on inspiration. HEENT: Atraumatic, normocephalic. The pupils are equal, round and reactive. Extraocular motor are intact Neck: Supple with full range of motion. No rigidity or meningismus Chest: Nontender to palpation Lungs: Clear to auscultation bilaterally no crackles rales or wheezing, substernal pain on inspiration Heart: Normal S1-S2, Regular rhythm and rate. No murmur, S3, or S4 Abdomen: Soft , nontender, nondistended , bowel sounds are present. No guarding no rebound tenderness , No masses or organomegaly. No costovertebral temporal angle mass Extremities: Normal to inspection, no edema no cyanosis Neurologic: Normal mental status, speech normal, cranial nerves II through XII are intact, motor and sensory are intact, no focal weakness Labs Result Diagram: 03/22/17 0356 03/22/17 0356 Medications Medications Current Medications Ondansetron HCl (Zofran Tab) 4 mg Q6H PRN PO NAUSEA AND/OR VOMITING; Start at 01:00 Acetaminophen (Tylenol Tab) 650 mg Q6H PRN PO PAIN LEVEL 1-3 OR FEVER Last administered on 03/22/17t 04:27; Admin Dose 650 MG; Start 03/22/17 at 01:00 Morphine Sulfate (morphine) 2 mg Q4H PRN IV PAIN LEVEL 7-10 Last administered on 03/22/17 01:14; Admin Dose 2 MG; Start 03/22/17 at 01:00 Enoxaparin Sodium (Lovenox) 150 mg Q12 SC Last administered on 03/22/17 05:14 ; Admin Dose 150 MG; Start 03/22/17 at 05:00 GEORGETTE CHÁVEZ Mar 22, 2017 09:30
[2017-03-22 12:00] VITALS: PULSE 88
--- NOTE | 2017-03-22 14:17 | PDOCDIS ---
Discharge Instructions DIAGNOSIS Discharge Diagnosis Chostochondritis CONDITION Patient Condition: Fair FOLLOW UP/APPOINTMENTS Follow-up Plan Follow up with your primary care doctor Return to the hospital if you have any concerning symptoms KUNAL VARGAS MD Mar 22, 2017 14:17
--- NOTE | 2017-03-22 14:58 | DS ---
Date/Time of Note Date/Time of Note DATE: 03/22/17 TIME: 14:57 Discharge Summary Admission/Discharge Info Admit Date/Time Mar 21, 2017 at 23:12 Discharge Date/Time Discharge Diagnosis Chostochondritis Patient Condition: Fair Hospital Course Troponins were negative, EKG nonischemic so ACS ruled out. Duplex US was negative for DVT Her pain was markedly reproducible to palpation of sternum, patinet guards with pressure there. Very likley this is chostochondritis. Encouraged to follow up with her PMD. Can take NSAIDs PRN for pain. CT-A and V/Q scan were unable to be performed as patient habitus too large for scanners. PE is very unlikley given clear alternative explanation of her pain, no dypsena or hypoxia, etc. Home Meds Active Scripts Phenazopyridine Hcl* (Pyridium*) 200 Mg Tab, 200 MG PO TID Y for URINARY PAIN, # 20 TAB Prov:MALIHA LR PA-C 11/20/16 Nitrofurantoin Monohyd Macrocr* (Macrobid*) 100 Mg Capsr, 100 MG PO BID for 7 Days, CAP Prov:MALIHA LR PA-C 11/20/16 Docusate Sodium* (Colace*) 100 Mg Capsule, 100 MG PO TID, #30 CAP Prov:CORNELL RIOS PA-C 11/11/16 Polyethylene Glycol* (Miralax*) 17 Gm Powd.pack, 17 GM PO DAILY, #10 Prov:CORNELL RIOS PA-C 11/11/16 Ciprofloxacin Hcl* (Ciprofloxacin Hcl*) 500 Mg Tablet, 500 MG PO BID for 10 Days , TAB Prov:LORRAINE CHARLES 11/03/16 Famotidine* (Pepcid*) 20 Mg Tablet, 20 MG PO BID for 14 Days, TAB Prov:LORRAINE CHARLES 11/03/16 Ondansetron (Ondansetron Odt) 4 Mg Tab.rapdis, 4 MG PO Q6H Y for NAUSEA AND/OR VOMITING, #10 TAB Prov:JUANA BROWN MD 09/09/16 Hydrocodone/Acetaminophen ([place] 10-325 Tablet) 1 Each Tablet, 1 TAB PO Q6H Y for PAIN, #7 TAB Prov:JUANA BROWN MD 09/09/16 Hydrocodone/Acetaminophen ([place] 5-325 Tablet) 1 Each Tablet, 1 TAB PO Q6H Y for PAIN, #7 TAB Prov:MARIANNE RUSH PA-C 05/20/16 Naproxen* (Naprosyn*) 500 Mg Tablet, 500 MG PO BID Y for PAIN AND/OR INFLAMMATION, #30 TAB Prov:MARIANNE RUSH PA-C 05/20/16 Reported Medications Topiramate* (Topamax*) 100 Mg Tablet, 50 10/03/13 Pantoprazole (Protonix) 40 Mg Tabec, DAILY 10/03/13 Norethindrone (Yamileth-Be) 0.35 Mg Tablet, DAILY 10/03/13 Sumatriptan Succinate* (Imitrex*) 100 Mg Tablet, PRN 10/03/13 Hydrochlorothiazide* (Hydrochlorothiazide*) 25 Mg Tab, DAILY 10/03/13 Fluticasone Propionate (Flonase (16 gm)) 1 [place], DAILY 10/03/13 Duloxetine Hcl* (Cymbalta*) 60 Mg Capsule.dr, DAIlY 10/03/13 Cyclobenzaprine Hcl* (Cyclobenzaprine Hcl*) 10 Mg Tablet, Q6 10/03/13 Qkasidcv-Eiabzeyll-Fmqqriporq* (Cortisporin* Ophth) 3.5 Gm Oint 10/03/13 Atenolol* (Tenormin*) 100 Mg Tablet, DAILY 10/03/13 Albuterol Sulfate* (Proair HFA*) 8.5 Gm Hfa.aer.ad 11/16/12 Follow-up Plan Follow up with your primary care doctor Return to the hospital if you have any concerning symptoms Primary Care Provider Jenniffer Daigle Pending Labs Laboratory Tests Test 03/21/17 19:20 03/21/17 19:30 03/22/17 03:56 03/22/17 07:18 D-Dimer 679.31ng/ml (<460) D-Dimer Comment White Blood Count 14.110^3/ul (4.8-10.8) 13.510^3/ul (4.8-10.8) Red Blood Count 4.6510^6/ul (4.20-5.40) 4.5210^6/ul (4.20-5.40) Hemoglobin 11.1g/dl (12.0-16.0) 10.7g/dl (12.0-16.0) Hematocrit 37.6% (37.0-47.0) 36.3% (37.0-47.0) Mean Corpuscular Volume 80.9fl (82.0-101.0) 80.3fl (82.0-101.0) Mean Corpuscular Hemoglobin 23.9pg (29.0-33.0) 23.7pg (29.0-33.0) Mean Corpuscular Hemoglobin Concent 29.5g/dl (32.0-37.0) 29.5g/dl (32.0-37.0) Red Cell Distribution Width 18.0% (11.5-14.5) 18.2% (11.5-14.5) Platelet Count 90902^3/UL (140-415) 06327^3/UL (140-415) Mean Platelet Volume 10.6fl (7.4-10.4) 9.9fl (7.4-10.4) Neutrophils % 63.4% (39.0-77.0) 63.1% (39.0-77.0) Lymphocytes % 28.0% (15.0-51.0) 29.3% (15.0-51.0) Monocytes % 6.2% (0.0-11.0) 5.3% (0.0-11.0) Eosinophils % 1.6% (0.0-7.0) 1.5% (0.0-7.0) Basophils % 0.4% (0.0-2.0) 0.3% (0.0-2.0) Nucleated Red Blood Cells % 0.1/100WBC (0.0-0.0) 0.0/100WBC (0.0-0.0) Neutrophils # 8.910^3/ul (1.6-7.5) 8.510^3/ul (1.6-7.5) Lymphocytes # 3.910^3/ul (0.8-2.9) 4.010^3/ul (0.8-2.9) Monocytes # 0.910^3/ul (0.3-0.9) 0.710^3/ul (0.3-0.9) Eosinophils # 0.210^3/ul (0.0-0.5) 0.210^3/ul (0.0-0.5) Basophils # 0.110^3/ul (0.0-0.1) 0.010^3/ul (0.0-0.1) Nucleated Red Blood Cells # 0.010^3/ul (0.0-0.0) 0.010^3/ul (0.0-0.0) Sodium Level 142mmol/L (135-144) 143mmol/L (135-144) Potassium Level 4.2mmol/L (3.5-5.1) 3.9mmol/L (3.5-5.1) Chloride Level 106mmol/L (97-110) 107mmol/L (97-110) Carbon Dioxide Level 26mmol/L (21-31) 26mmol/L (21-31) Anion Gap 14 (8-16) 14 (8-16) Blood Urea Nitrogen 14mg/dl (7-20) 12mg/dl (7-20) Creatinine 0.76mg/dl (0.44-1.00) 0.79mg/dl (0.44-1.00) Glucose Level 87mg/dl (70-220) 109mg/dl (70-220) Calcium Level 9.0mg/dl (8.4-10.2) 9.0mg/dl (8.4-10.2) Total Bilirubin 0.2mg/dl (0.2-1.3) 0.2mg/dl (0.2-1.3) Direct Bilirubin 0.00mg/dl (0.00-0.20) 0.00mg/dl (0.00-0.20) Indirect Bilirubin 0.2mg/dl (0-1.1) 0.2mg/dl (0-1.1) Aspartate Amino Transf (AST/SGOT) 31IU/L (15-46) 24IU/L (15-46) Alanine Aminotransferase (ALT/SGPT) 35IU/L (13-69) 31IU/L (13-69) Alkaline Phosphatase 75IU/L (42-121) 71IU/L (42-121) Troponin I < 0.012ng/ml (0.00-0.12) < 0.012ng/ml (0.00-0.12) < 0.012ng/ml (0.00-0.12) Total Protein 7.6g/dl (6.1-8.1) 7.7g/dl (6.1-8.1) Albumin 3.7g/dl (3.3-4.9) 3.4g/dl (3.3-4.9) Globulin 3.90g/dl (1.3-3.2) 4.30g/dl (1.3-3.2) Albumin/Globulin Ratio 0.94 0.79 Hemoglobin A1c 5.7% (0-5.9) Magnesium Level 1.7mg/dl (1.7-2.5) Creatine Kinase 67IU/L (23-200) 62IU/L (23-200) Creatine Kinase Index 1.7 1.9 Creatinine Kinase MB (Mass) 1.16ng/ml (0.0-2.4) 1.15ng/ml (0.0-2.4) Triglycerides Level 107mg/dl (0-149) Cholesterol Level 146mg/dl (100-200) LDL Cholesterol, Calculated 99mg/dl HDL Cholesterol 26mg/dl (34-82) Cholesterol/HDL Ratio 5.6RATIO Thyroid Stimulating Hormone (TSH) 2.760MIU/L (0.465-4.680) Test 03/22/17 07:20 Serum HCG, Qualitative NEGATIVE (NEGATIVE) KUNAL VARGAS MD Mar 22, 2017 14:58
--- NOTE | 2017-03-22 15:57 | RADRPT ---
Echocardiogram Report Patient Name: SUDHEER MCKINNON Gender: Female Date: 1985 Study Date: 22-Mar-2017 Device Repair Technician: Yrn Toro [facility] Location: [facility] Ref. Physician: GEORGETTE CHÁVEZ Quality: Technically Difficult Study Procedures: Transthoracic echocardiogram with complete 2D, M-Mode, and doppler examination. Indications: Chest Pain. 2D/M Mode Doppler Measurement Value Normal Ranges Measurement Value Normal Ranges LVIDd 2D 4.8 3.5 - 5.6 cm AV Peak Joel 2.4 m/sec LVIDs 2D 2.2 2.1 - 4.1 cm AV Peak PG 22.8 mmHg LVPWd 2D 1.3 0.6 - 1.1 cm LVOT Peak Joel 1.8 m/sec IVSd 2D 1.4 0.6 - 1.1 cm LVOT Peak PG 12.7 mmHg AoR Diam 2D 2.7 2.0 - 3.7 cm MV E Peak Jole 1.0 m/sec EDV 2D 105.4 cm3 MV A Peak Joel 0.8 m/sec ESV 2D 11.1 cm3 MV E/A 1.2 LA Dimen 2D 3.8 2.3 - 4.0 cm MV Decel Time 164 msec MV Decel Edwards 6 MV E/A 1.2 Findings Left Ventricle: Normal left ventricular systolic function. Normal left ventricular cavity size. Moderate concentric left ventricular hypertrophy. Ejection fraction is visually estimated at 65 %. Abnormal Diastolic Function. Right Ventricle: Normal right ventricular size. Normal right ventricular systolic function. Left Atrium: The left atrium is normal in size. Right Atrium: The right atrium is normal in size. Mitral Valve: Normal appearance of the mitral valve. Mild mitral annular calcification. Trace mitral regurgitation. Aortic Valve: No significant aortic stenosis or insufficiency. Aortic cusps appear mildly calcified. Tricuspid Valve: Normal appearance of the tricuspid valve. Pulmonic Valve: Normal pulmonic valve appearance. Pericardium: Normal pericardium with no significant pericardial effusion. Aorta: Normal aortic root. IVC: Dilated IVC with respiratory collapse consistent with elevated right atrial pressure. Conclusions 1.Normal left ventricular systolic function. Normal left ventricular cavity size. Moderate concentric left ventricular hypertrophy. Ejection fraction is visually estimated at 65 %. Abnormal Diastolic Function. 2.Normal right ventricular size. Normal right ventricular systolic function. 3.The left atrium is normal in size. 4.The right atrium is normal in size. 5.No significant valvular stenosis or regurgitation seen. 6.Normal pericardium with no significant pericardial effusion. Electronically Signed By: Eleuterio Uriarte 22-Mar-2017 15:56:50 -0800 Patient Name: SUDHEER MCKINNON Study Date: 22-Mar-2017 [id number]
== END 2017-03-22 16:00 | disposition home or self-care (01) | DRG 206 ==
LOC: FTE 15:54 → MS3 23:12
PROVIDERS: ADMIT Family Medicine; ATTEND Family Medicine
DX: M94.0 Chondrocostal junction syndrome [Tietze] (principal); Z68.44 Body mass index [BMI] 60.0-69.9, adult; E66.01 Morbid (severe) obesity due to excess calories
CPT/HCPCS: 71010; 73562; 80053; 80061; 82550; 82553; 83036; 83735; 83890; 84443; 84484; 84703; 85025; 85300; 85302; 85305; 85378; 85613; 93005; 93306; 93970; J1650; J2270; Q9967

== ENCOUNTER 2017-08-09 19:10 | Emergency (ER) | END 2017-08-09 23:15 | disposition home or self-care (01) ==

== ENCOUNTER 2018-05-06 15:53 | Emergency (ER) | payer OTHER ==
[~2018-05-06] VITALS: Ht 165.1 cm; Wt 185.1 kg
[~2018-05-06 15:53] MED LIST changes: -ALBU8.5H3; +ALBU8.5H8; -CIPR500T4 PO; -CYCL-319; +CYCL10TA7; +HYDR-3980 PO; +HYDR-4011 PO; -HYDR-902 PO; -HYDR-906 PO; -NAPR-260 PO; +NAPR-985 PO; -NITR-58 PO; +SUMA100T3; -SUMA100T9; +TOPI100T; -TOPI100T42; +[UNRECOGNIZED DRUG - CODE]; -[UNRECOGNIZED DRUG - CODE]
[2018-05-06 16:00] VITALS: Ht 165.1 cm; Wt 185.1 kg
[2018-05-06] MEDS ORDERED: KETOROLAC 30 MG INJ IM STA (18:43)
[2018-05-06] MEDS ORDERED: METHOCARBAMOL 750 MG TAB PO ONE (19:00)
[2018-05-06] MEDS ORDERED: DEXAMETHASONE 10 MG/ML 1 ML INJ IM ONE (19:00)
[2018-05-06] MEDS ORDERED: NITR-58 PO (19:54)
[2018-05-06] MEDS ORDERED: METH750T93 PO (19:55)
[2018-05-06] MEDS ORDERED: HYDR-4011 PO (20:15)
--- NOTE | 2018-05-06 20:22 | ERD ---
ER Documentation Chief Complaint Chief Complaint chronic back pain worse today - taking flexeril HPI 33-year-old female presents for low back pain and dysuria. She states that she is been having low back pain for about 3 weeks however the pain is getting worse the last couple days. She says she started developing dysuria about a day ago. She thinks it might have a urinary tract infection. She does have chronic low back pain for which she takes medication. She takes Flexeril and Motrin. No recent infections, no history of spinal procedures recently, no history of cancer noted. She denies any fevers or chills. ROS All systems reviewed and are negative except as per history of present illness. Medications Home Meds Active Scripts Hydrocodone/Acetaminophen ([place] 5-325 Tablet) 1 Each Tablet, 1 EACH PO Q6H PRN for PAIN, #10 TAB Prov:FLAVIO CONNORS DO 05/06/18 Methocarbamol* (Robaxin*) 750 Mg Tablet, 750 MG PO TID PRN for back spasm, #30 TAB Prov:FLAVIO CONNORS DO 05/06/18 Nitrofurantoin Monohyd Macrocr* (Macrobid*) 100 Mg Capsr, 100 MG PO BID for uti for 5 Days, #10 CAP Prov:FLAVIO CONNORS DO 05/06/18 Naproxen* (Naprosyn*) 500 Mg Tablet, 500 MG PO BID PRN for PAIN AND/OR INFLAMMATION, #20 TAB Prov:ADRIANA LEMUS PA-C 08/09/17 Hydrocodone/Acetaminophen ([place] 5-325 Tablet) 1 Each Tablet, 1 TAB PO Q6H PRN for PAIN, #7 TAB Prov:ADRIANA LEMUS PA-C 08/09/17 Phenazopyridine Hcl* (Pyridium*) 200 Mg Tab, 200 MG PO TID PRN for URINARY PAIN, #20 TAB Prov:MALIHA LR PA-C 11/20/16 Docusate Sodium* (Colace*) 100 Mg Capsule, 100 MG PO TID, #30 CAP Prov:CORNELL RIOS PA-C 11/11/16 Polyethylene Glycol* (Miralax*) 17 Gm Powd.pack, 17 GM PO DAILY, #10 Prov:CORNELL ROIS PA-C 11/11/16 Famotidine* (Pepcid*) 20 Mg Tablet, 20 MG PO BID for 14 Days, TAB Prov:LORRAINE CHARLES 11/03/16 Ondansetron (Ondansetron Odt) 4 Mg Tab.rapdis, 4 MG PO Q6H PRN for NAUSEA AND/OR VOMITING, #10 TAB Prov:JUANA BROWN MD 09/09/16 Hydrocodone/Acetaminophen ([place] 10-325 Tablet) 1 Each Tablet, 1 TAB PO Q6H PRN for PAIN, #7 TAB Prov:JUANA BROWN MD 09/09/16 Hydrocodone/Acetaminophen ([place] 5-325 Tablet) 1 Each Tablet, 1 TAB PO Q6H PRN for PAIN, #7 TAB Prov:MARIANNE RUSH PA-C 05/20/16 Naproxen* (Naprosyn*) 500 Mg Tablet, 500 MG PO BID PRN for PAIN AND/OR INFLAMMATION, #30 TAB Prov:MARIANNE RUSH PA-C 05/20/16 Reported Medications Topiramate* (Topamax*) 100 Mg Tablet, 50 10/03/13 Pantoprazole (Protonix) 40 Mg Tabec, DAILY 10/03/13 Norethindrone (Yamileth-Be) 0.35 Mg Tablet, DAILY 10/03/13 Sumatriptan Succinate* (Imitrex*) 100 Mg Tablet, PRN 10/03/13 Hydrochlorothiazide* (Hydrochlorothiazide*) 25 Mg Tab, DAILY 10/03/13 Fluticasone Propionate (Flonase (16 gm)) 1 [place], DAILY 10/03/13 Duloxetine Hcl* (Cymbalta*) 60 Mg Capsule.dr, DAIlY 10/03/13 Cyclobenzaprine Hcl* (Cyclobenzaprine Hcl*) 10 Mg Tablet, Q6 10/03/13 Cymwfhvh-Kupqopijw-Lztdnbtfcg* (Cortisporin* Ophth) 3.5 Gm Oint 10/03/13 Atenolol* (Tenormin*) 100 Mg Tablet, DAILY 10/03/13 Albuterol Sulfate* (Proair HFA*) 8.5 Gm Hfa.aer.ad 11/16/12 Allergies Allergies: Coded Allergies: No Known Allergy (Unverified , 11/11/16) PMhx/Soc History of Surgery: Yes ([place] teeth) Anesthesia Reaction: No Hx Neurological Disorder: No Hx Respiratory Disorders: Yes (Asthma) Hx Cardiac Disorders: Yes (Questionable hypertension) Hx Psychiatric Problems: Yes (Depression) Hx Miscellaneous Medical Probl: Yes (GERD, recurrent urinary tract infections) Hx Alcohol Use: No Hx Substance Use: No Hx Tobacco Use: No Smoking Status: Never smoker Physical Exam Vitals Vital Signs Date Temp Pulse Resp B/P (MAP) Pulse Ox O2 O2 Flow FiO2 Time Delivery Rate 05/06/18 98.2 139 20 177/86 95 16:00 (116) Physical Exam Const: No acute distress Resp: Clear to auscultation bilaterally Cardio: Regular rate and rhythm, no murmurs, bilateral dorsalis pedis pulses intact Abd: Soft, non tender, non distended. Normal bowel sounds Skin: No petechiae or rashes Back: Low back pain tenderness palpation of the paravertebral muscle areas. There is no midline tenderness. No CVA tenderness noted Ext: No cyanosis, or edema, muscle strength 5 out of 5 bilateral lower extremities Neur: Awake and alert, bilateral lower extremity sensation intact Psych: Normal Mood and Affect Results 24 hrs Laboratory Tests Test 05/06/18 18:52 05/06/18 18:54 POC Beta HCG, Qualitative NEGATIVE Urine Color YELLOW Urine Clarity SLIGHTLY CLOUDY Urine pH 8.0 Urine Specific [place] 1.009 Urine Ketones NEGATIVE mg/dL Urine Nitrite NEGATIVE mg/dL Urine Bilirubin NEGATIVE mg/dL Urine Urobilinogen NEGATIVE mg/dL Urine Leukocyte Esterase 3+ Eduardo/ul Urine Microscopic RBC 6 /HPF Urine Microscopic WBC 145 /HPF Urine Squamous Epithelial Cells FEW /HPF Urine Yeast (Budding) FEW /HPF Urine Hemoglobin 2+ mg/dL Urine Glucose NEGATIVE mg/dL Urine Total Protein 1+ mg/dl Current Medications Medications Dose Sig/Amaya Start Time Status Last (Trade) Ordered Route PRN Stop Time Admin Dose Reason Admin Ketorolac 30 mg ONCE STAT 05/06/18 DC 05/06/18 Tromethamine IM 18:43 18:59 (Toradol) 05/06/18 18:45 10 mg ONCE ONCE 05/06/18 DC 05/06/18 Dexamethasone IM 19:00 18:58 (Decadron) 05/06/18 19:01 750 mg ONCE ONCE 05/06/18 DC 05/06/18 Methocarbamol PO 19:00 18:57 (Robaxin) 05/06/18 19:01 Procedures/MDM Medical Decision Making: Differential diagnosis includes but not limited to pyelonephritis, urinary tract infection, osteoarthritis, epidural abscess, osteomyelitis. Patient appeared well on examination, nontoxic appearing. Patient was neurovascularly intact Patient UA was positive for urinary tract infection Patient was given Toradol, Robaxin, Decadron in the ER for her low back pain which improved with treatment. Patient is low back pain likely an exacerbation of her chronic low back pain. Low suspicion for an epidural abscess or osteomyelitis or pyelonephritis given no history of fever and no history of spinal procedure. Patient given prescription for Macrobid, Robaxin, [place]. Patient advised to continue with the Motrin that she has at home for low back pain. Patient advised to follow up with PCP in 1-2 days. Patient advised to return to ED for new or worsening symptoms. Patient stable on discharge from the ED. Disclaimer: Inadvertent spelling and grammatical errors are likely due to EHR/dictation software use and do not reflect on the overall quality of patient care. Also, please note that the electronic time recorded on this note does not necessarily reflect the actual time of the patient encounter. Departure Diagnosis: Primary Impression: Back pain Back pain location: low back pain Chronicity: chronic Back pain laterality: bilateral Sciatica presence: unspecified whether sciatica present Qualified Codes: M54.5 - Low back pain; G89.29 - Other chronic pain Additional Impression: UTI (urinary tract infection) Urinary tract infection type: acute cystitis Hematuria presence: without hematuria Qualified Codes: N30.00 - Acute cystitis without hematuria Condition: Fair Patient Instructions: Understanding Urinary Tract Infections (UTIs), Back Pain (Acute Or Chronic) Referrals: [facility] (PCP) Additional Instructions: Call your primary care doctor TOMORROW for an appointment during the next 1-2 days.See the doctor sooner or return here if your condition worsens before your appointment time. FLAVIO CONNORS DO May 06, 2018 20:22
[2018-05-06 20:29] VITALS: BP 127/82; PULSE 108; RESP 18
== END 2018-05-06 20:31 | disposition home or self-care (01) ==
LOC: FTE 15:53
DX: M54.5 Low back pain (principal); N30.00 Acute cystitis without hematuria; J45.909 Unspecified asthma, uncomplicated; I10 Essential (primary) hypertension
CPT/HCPCS: 81001; 81025; 96372; 99284; J1100; J1885